=== PATIENT | female | born 1980 | race Caucasian/White ===

== ENCOUNTER → 2020-02-20 | Outpatient (REF) | payer BC ==
[2020-02-20 11:13] LABS: HEMATOCRIT 37.7 % (36.0-47.0); HEMOGLOBIN 12.4 g/dl (12.0-15.5); MEAN CORPUSCULAR HEMOGLOBIN 27.4 pg (27.0-33.0); MEAN CORPUSCULAR HGB CONC 32.9 g/dl (32.0-36.5); MEAN CORPUSCULAR VOLUME 83.4 fl (80.0-96.0); PLATELET COUNT, AUTOMATED 260 10^3/uL (150-450); RED BLOOD COUNT 4.52 10^6/uL (4.00-5.40); WHITE BLOOD COUNT 7.7 10^3/uL (4.0-10.0)
[2020-02-20 12:01] LABS: GLUCOSE CHALLENGE TEST 1 HOUR 73 MG/DL (LESS THAN 140)
[2020-02-20 12:46] LABS: CHLAMYDIA DNA AMPLIFICATION NEGATIVE (NEGATIVE); GC DNA AMPLIFICATION NEGATIVE (NEGATIVE)
[2020-02-20 12:47] LABS: HEPATITIS C VIRUS ABY INDEX 0.2 INDEX (<0.8); HIV 1&2 SCREEN CENTAUR NEGATIVE (NEGATIVE)
== END ==
LOC: M PLALAB 08:55
PROVIDERS: ATTEND Advanced Practice Midwife
DX: O09.523 Supervision of elderly multigravida, third trimester (principal)

== ENCOUNTER → 2020-02-25 | Outpatient (CLI) | payer BC ==
[~2020-02-25] MED LIST: IBUP80TA PO; PRENTAB9 PO; VALA500T5 PO; [UNRECOGNIZED DRUG - CODE] PO
--- NOTE | 2020-02-25 16:05 | REP ---
Clinical: Anatomical evaluation. Comparison: None . Findings: Examination demonstrates a single live intrauterine in cephalic presentation. motion is identified by technologist. Placenta is noted posterior and grade I without evidence for placenta previa or abruption. Amniotic fluid volume is normal. Cervix measures 3.8 cm in length and appears closed. No evidence for nuchal cord. Gestational age by LMP 31 weeks 6 days with SHELIA 04/22/2020 . Gestational age by current measurements 32 weeks 4 days with SHELIA see 04/17/2020 . FHR equals 142 beats per minute. Estimated weight 2006 grams ( 57th percentile). Amniotic fluid index: 11.8 cm (8.6 - 24.2). Anatomical assessment demonstrates no gross abnormalities. History of renal pelviectasis is given. Current examination demonstrates the right renal pelvis to measures 4.8 mm diameter and the left renal pelvis to measure 5.8 mm diameter. Impression: Single live intrauterine in cephalic presentation demonstrating appropriate estimated weight and growth. No gross abnormalities are identified.
== END ==
LOC: M WHC 14:25
PROVIDERS: ATTEND Advanced Practice Midwife
DX: O09.523 Supervision of elderly multigravida, third trimester (principal)

== ENCOUNTER 2020-03-13 21:09 | Outpatient (CLI) | payer BC ==
[~2020-03-13] VITALS: Ht 175.3 cm; Wt 121.3 kg
[2020-03-13 22:09] VITALS: BP 115/52
[2020-03-13 23:28] VITALS: BP 115/54
[2020-03-14 00:21] VITALS: BP 131/59
[2020-03-14] MEDS ORDERED: PRENATAL VITAMINS CHEWABLE TABLET PO SCH (09:00)
--- NOTE | 2020-03-14 09:22 | IPN ---
DATE: 03/14/2020 39-year-old, 3, para 2 female at 34-4/7 weeks' gestation presents with decreased movement for 1 day. She woke up in the morning and noticed the baby was not moving. The baby had some movements but it was very minimal, not characteristic at all for this baby. She denies pain or bleeding. OBJECTIVE: Afebrile, vital signs stable. No apparent distress. Head and neck exam: Normal. Lungs: Clear. Heart: Regular. Abdomen: Nontender, gravid. heart tones: Category 1. Contractions: None. Ultrasound at bedside, biophysical profile 04/17, amniotic fluid level 10.0, vertex. ASSESSMENT: 39-year-old, 3, para 2 female at 34-4/7 weeks' gestation presents with decreased movement. All testing is reassuring. PLAN: Patient is discharged home. She will continue to monitor movements. Followup in the office as scheduled.
== END 2020-03-14 00:30 | disposition home or self-care (01) ==
LOC: M LDO 21:09
PROVIDERS: ATTEND Specialist
DX: O36.8130 Decreased fetal movements, third trimester, not applicable or unspecified (principal); O09.523 Supervision of elderly multigravida, third trimester; Z3A.34 34 weeks gestation of pregnancy
CPT/HCPCS: 59025; 76815; G0378; G0463

== ENCOUNTER → 2020-03-23 | Outpatient (REF) | payer BC | LOC: M SFHCWAGY 17:06 | PROVIDERS: ATTEND Advanced Practice Midwife | DX: O09.529 Supervision of elderly multigravida, unspecified trimester (principal); Z3A.00 Weeks of gestation of pregnancy not specified ==

== ENCOUNTER 2020-03-27 10:32 | Outpatient (CLI) | payer BC ==
[~2020-03-27] VITALS: Ht 175.3 cm; Wt 120.9 kg
[2020-03-27 10:49] VITALS: BP 108/59
[2020-03-27] MEDS ORDERED: PRENTAB9 PO (11:00)
[2020-03-27] MEDS ORDERED: [UNRECOGNIZED DRUG - CODE] PO (11:00)
[2020-03-27] MEDS ORDERED: VALA500T5 PO (12:57)
== END 2020-03-27 13:00 | disposition home or self-care (01) ==
LOC: M LDO 10:32
PROVIDERS: ATTEND Obstetrics & Gynecology
DX: O47.03 False labor before 37 completed weeks of gestation, third trimester (principal); Z3A.36 36 weeks gestation of pregnancy
CPT/HCPCS: 59025; 76815; G0378; G0463

== ENCOUNTER 2020-03-27 23:19 | Inpatient (IN) | payer BC ==
[~2020-03-27] VITALS: Ht 175.3 cm; Wt 121.8 kg
[~2020-03-27 23:19] MED LIST changes: -IBUP80TA PO
[2020-03-27 23:36] VITALS: BP 133/75
[2020-03-28] VITALS (7 sets, daily range): BP systolic 113–144; BP diastolic 60–77
[2020-03-28] MEDS ORDERED: LR 1,000 ML IV SCH ×2 (00:08→02:46)
[2020-03-28] MEDS ORDERED: LACTATED RINGER'S 1000 ML IV STA (00:08)
[2020-03-28] MEDS ORDERED: BUTORPHANOL 2 MG/ML INJ (J0595) IV ONE (00:15)
[2020-03-28] MEDS ORDERED: PROMETHAZINE INJ 25 MG/ML VIAL (J2550) IV ONE (00:15)
[2020-03-28] MEDS ORDERED: ONDANSETRON 4MG/2ML VIAL IV SCH (00:30)
[2020-03-28] MEDS ORDERED: OXYTOCIN 30 UNITS IN 0.9% NaCl 500ML IV BAG (J2590) As Ordered ONE (01:56)
[2020-03-28] MEDS ORDERED: OXYTOCIN DRIP 30 UNITS in IV 1 EA IV SCH (02:46)
[2020-03-28] MEDS ORDERED: ACETAMINOPHEN 500 MG TAB PO PRN (03:00)
[2020-03-28] MEDS ORDERED: ONDANSETRON 4MG/2ML VIAL IV PRN (03:00)
[2020-03-28] MEDS ORDERED: DIBUCAINE 1% OINTMENT 30GM TOP PRN (03:00)
[2020-03-28] MEDS ORDERED: MEASLES,MUMPS,RUBELLA VACCINE INJ (MMR-II) (90707) SC SCH (03:00)
[2020-03-28] MEDS ORDERED: IBUPROFEN 600MG TAB PO PRN (03:00)
[2020-03-28] MEDS ORDERED: DOCUSATE SODIUM 100 MG CAP PO PRN (03:00)
[2020-03-28] MEDS ORDERED: RHOGAM 300 MCG (1500 IU) INJ (J2790) IM SCH (03:00)
[2020-03-28] MEDS ORDERED: PROMETHAZINE 25 MG TAB PO PRN (03:00)
[2020-03-28] MEDS ORDERED: ACETAMINOPHEN TAB 650MG DOSE (2X325MG) PO PRN (03:00)
[2020-03-28 08:09] LABS: HEMATOCRIT 34.4 % (36.0-47.0); HEMOGLOBIN 11.4 g/dl (12.0-15.5); MEAN CORPUSCULAR HEMOGLOBIN 27.5 pg (27.0-33.0); MEAN CORPUSCULAR HGB CONC 33.1 g/dl (32.0-36.5); MEAN CORPUSCULAR VOLUME 82.9 fl (80.0-96.0); PLATELET COUNT, AUTOMATED 289 10^3/uL (150-450); RED BLOOD COUNT 4.15 10^6/uL (4.00-5.40); WHITE BLOOD COUNT 13.2 10^3/uL (4.0-10.0)
[2020-03-28] MEDS: PRENATAL VITAMINS CHEWABLE TABLET PO SCH (08:54)
[2020-03-28] MEDS: IBUPROFEN 800 MG TAB PO PRN ×2 (14:44→23:56)
[2020-03-29 06:00] VITALS: BP 109/56
[2020-03-29] MEDS: PRENATAL VITAMINS CHEWABLE TABLET PO SCH (08:03)
[2020-03-29 17:38] VITALS: BP 108/55
[2020-03-29] MEDS: IBUPROFEN 800 MG TAB PO PRN (17:47)
[2020-03-30] MEDS: IBUPROFEN 800 MG TAB PO PRN (05:17)
[2020-03-30 06:00] VITALS: BP 125/59
[2020-03-30] MEDS: PRENATAL VITAMINS CHEWABLE TABLET PO SCH (09:13)
[2020-03-30] MEDS ORDERED: IBUP80TA PO (09:31)
== END 2020-03-30 10:10 | disposition home or self-care (01) | DRG 560 ==
LOC: M LDO 23:19 → M LDI 03-28 01:53 → M OBS 03-28 09:07
PROVIDERS: ADMIT Obstetrics & Gynecology; ATTEND Obstetrics & Gynecology
PROC: 10E0XZZ Delivery of Products of Conception, External Approach (ICD-10-PCS; principal; 2020-03-28)
DX: O62.3 Precipitate labor (principal); O09.523 Supervision of elderly multigravida, third trimester; Z3A.36 36 weeks gestation of pregnancy; O69.81X0 Labor and delivery complicated by cord around neck, without compression, not applicable or unspecified; O60.14X0 Preterm labor third trimester with preterm delivery third trimester, not applicable or unspecified; Z37.0 Single live birth

== ENCOUNTER → 2020-09-02 | Outpatient (REF) | payer BC ==
[~2020-09-02] MED LIST changes: +IBUP80TA PO
[2020-09-02 13:55] LABS: HEMATOCRIT 39.5 % (36.0-47.0); HEMOGLOBIN 12.2 g/dl (12.0-15.5); MEAN CORPUSCULAR HEMOGLOBIN 25.2 pg (27.0-33.0); MEAN CORPUSCULAR HGB CONC 30.9 g/dl (32.0-36.5); MEAN CORPUSCULAR VOLUME 81.6 fl (80.0-96.0); PLATELET COUNT, AUTOMATED 332 10^3/uL (150-450); RED BLOOD COUNT 4.84 10^6/uL (4.00-5.40); WHITE BLOOD COUNT 5.6 10^3/uL (4.0-10.0)
[2020-09-02 14:31] LABS: ALBUMIN 3.6 GM/DL (3.2-5.2); ALT/SGPT 21 U/L (12-78); BILIRUBIN,TOTAL 0.6 MG/DL (0.2-1.0); BLOOD UREA NITROGEN 10 MG/DL (7-18); CALCIUM LEVEL 8.5 MG/DL (8.5-10.1); CARBON DIOXIDE LEVEL 25 MEQ/L (21-32); CHLORIDE LEVEL 109 MEQ/L (98-107); CHOLESTEROL LEVEL 153 MG/DL (<200); CREATININE FOR GFR 0.61 MG/DL (0.55-1.30); FERRITIN 10 NG/ML (8-252); FREE THYROXINE INDEX 3.1 % (1.3-4.8); GLOMERULAR FILTRATION RATE > 60.0 (>60); GLUCOSE, FASTING 81 MG/DL (70-100); HDL CHOLESTEROL 68 MG/DL (>40); IRON (FE) 60 UG/DL (50-170); LDL CHOLESTEROL 73 MG/DL (<100); NON-HDL-C 85 MG/DL; PERCENT SATURATION 14.6 % (13.2-45.0); POTASSIUM SERUM 4.1 MEQ/L (3.5-5.1); SODIUM LEVEL 140 MEQ/L (136-145); T UPTAKE 32 % (30-39); THYROXINE (T4) 9.6 UG/DL (4.5-12.0); TOTAL IRON BINDING CAPACITY 410 UG/DL (250-450); TRIGLYCERIDES LEVEL 60 MG/DL (<150)
[2020-09-02 15:24] LABS: TOTAL 25(OH) VITAMIN D 23.5 NG/ML (30.0-100.0)
[2020-09-02 15:25] LABS: FOLLICLE STIMULATING HORMONE 5.8 mIU/mL; VITAMIN B12 LEVEL 1477 PG/ML (247-911)
== END ==
LOC: M SFHCPLAZ 09:34
PROVIDERS: ATTEND Nurse Practitioner Adult Health
DX: Z00.00 Encounter for general adult medical examination without abnormal findings (principal); Z13.220 Encounter for screening for lipoid disorders; Z13.1 Encounter for screening for diabetes mellitus; Z13.21 Encounter for screening for nutritional disorder; R53.83 Other fatigue; R63.5 Abnormal weight gain; N92.6 Irregular menstruation, unspecified

== ENCOUNTER → 2020-10-15 | Outpatient (REF) | payer BC ==
[2020-10-15 11:05] LABS: FREE T4 1.12 NG/DL (0.76-1.46); THYROID STIMULATING HORMONE 1.36 uIU/ML (0.358-3.740)
[2020-10-15 11:08] LABS: PROLACTIN 8.2 NG/ML
== END ==
LOC: M PLALAB 08:35
PROVIDERS: ATTEND Obstetrics & Gynecology
DX: N64.3 Galactorrhea not associated with childbirth (principal)

== ENCOUNTER → 2021-03-01 | Outpatient (REF) | payer BC ==
[2021-03-01 13:34] LABS: HEMATOCRIT 42.3 % (36.0-47.0); HEMOGLOBIN 13.1 g/dl (12.0-15.5); MEAN CORPUSCULAR HEMOGLOBIN 25.2 pg (27.0-33.0); MEAN CORPUSCULAR VOLUME 81.3 fl (80.0-96.0); PLATELET COUNT, AUTOMATED 371 10^3/uL (150-450); WHITE BLOOD COUNT 5.4 10^3/uL (4.0-10.0)
[2021-03-01 13:58] LABS: HEMOGLOBIN A1c 5.1 %
[2021-03-01 14:08] LABS: ERYTHROCYTE SEDIMENTATION RATE 12 mm/hr (0-20)
[2021-03-01 14:33] LABS: ALBUMIN 3.8 GM/DL (3.2-5.2); ALT/SGPT 20 U/L (12-78); BILIRUBIN,TOTAL 0.4 MG/DL (0.2-1.0); BLOOD UREA NITROGEN 8 MG/DL (7-18); CALCIUM LEVEL 8.6 MG/DL (8.5-10.1); CARBON DIOXIDE LEVEL 29 MEQ/L (21-32); CHLORIDE LEVEL 104 MEQ/L (98-107); CREATININE FOR GFR 0.57 MG/DL (0.55-1.30); FERRITIN 6 NG/ML (8-252); FREE T4 1.11 NG/DL (0.76-1.46); GLOMERULAR FILTRATION RATE > 60.0 (>60); GLUCOSE, FASTING 69 MG/DL (70-100); IRON (FE) 39 UG/DL (50-170); PERCENT SATURATION 9.1 % (13.2-45.0); POTASSIUM SERUM 4.3 MEQ/L (3.5-5.1); PROLACTIN 9.2 NG/ML; SODIUM LEVEL 137 MEQ/L (136-145); THYROID STIMULATING HORMONE 0.997 uIU/ML (0.358-3.740); TOTAL 25(OH) VITAMIN D 47.3 NG/ML (30.0-100.0); TOTAL IRON BINDING CAPACITY 427 UG/DL (250-450); TOTAL PROTEIN 7.3 GM/DL (6.4-8.2)
[2021-03-02 12:07] LABS: DRVV SCREEN 40.8 SEC
[2021-03-02 12:10] LABS: PTT LUPUS TYPE ANTICOAG SCREEN 1.1 (0-1.2)
[2021-03-02 23:07] LABS: ANA (HEP2) Positive (.); ANTI SCLERODERMA ANTIBODIES <0.2 AI (0.0-0.9); CYCLIC CITRULLINATED PEPTIDE 4 units (0-19); IgG P18 AB Absent (.); IgG P23 AB Absent (.); IgG P28 AB Absent (.); IgG P30 AB Absent (.); IgG P39 AB Absent (.); IgG P41 AB Absent (.); IgG P45 AB Absent (.); IgG P66 AB Absent (.); IgG P93 AB Absent (.); IgM P23 AB Absent (.); IgM P39 AB Absent (.); IgM P41 AB Absent (.); LYME IgG WB INTERPRETATION Negative (.); LYME IgM WB INTERPRETATION Negative (.)
== END ==
LOC: M SFHCPLAZ 11:10
PROVIDERS: ATTEND Nurse Practitioner Adult Health
DX: M25.50 Pain in unspecified joint (principal); E74.39 Other disorders of intestinal carbohydrate absorption; R53.83 Other fatigue; R00.2 Palpitations; N64.3 Galactorrhea not associated with childbirth

== ENCOUNTER 2021-03-21 09:03 | Outpatient (CLI) | payer BC ==
[~2021-03-21] VITALS: Ht 172.7 cm; Wt 120.0 kg
[2021-03-21] VITALS (7 sets, daily range): BP systolic 88–132; BP diastolic 47–72
[~2021-03-21 09:03] MED LIST changes: +IRON SUCROSE 25 MG in NS 25 ML IV ONE; +IRON SUCROSE 475 MG in NS 250 ML IV ONE
[2021-03-21] MEDS ORDERED: diphenhydrAMINE 50MG CAP PO ONE (09:30)
[2021-03-21] MEDS ORDERED: ACETAMINOPHEN TAB 650MG DOSE (2X325MG) PO ONE (09:30)
== END 2021-03-21 14:25 | disposition home or self-care (01) ==
LOC: M INFU 09:03
PROVIDERS: ATTEND Nurse Practitioner Adult Health
DX: D50.9 Iron deficiency anemia, unspecified (principal); Z88.6 Allergy status to analgesic agent; Z91.040 Latex allergy status
CPT/HCPCS: 96365; 96366; J1756

== ENCOUNTER → 2021-06-20 | Outpatient (CLI) | payer BC ==
[~2021-06-20] MED LIST changes: -IRON SUCROSE 25 MG in NS 25 ML IV ONE; -IRON SUCROSE 475 MG in NS 250 ML IV ONE
[2021-06-20 16:14] LABS: HEMATOCRIT 41.9 % (36.0-47.0); HEMOGLOBIN 13.4 g/dl (12.0-15.5); MEAN CORPUSCULAR HEMOGLOBIN 26.9 pg (27.0-33.0); PLATELET COUNT, AUTOMATED 295 10^3/uL (150-450); RED BLOOD COUNT 4.99 10^6/uL (4.00-5.40); WHITE BLOOD COUNT 6.5 10^3/uL (4.0-10.0)
[2021-06-20 16:44] LABS: ALBUMIN 3.4 GM/DL (3.2-5.2); ALT/SGPT 18 U/L (12-78); BILIRUBIN,TOTAL 0.4 MG/DL (0.2-1.0); BLOOD UREA NITROGEN 16 MG/DL (7-18); CALCIUM LEVEL 8.4 MG/DL (8.5-10.1); CARBON DIOXIDE LEVEL 24 MEQ/L (21-32); CHLORIDE LEVEL 109 MEQ/L (98-107); FERRITIN 16 NG/ML (8-252); GLOMERULAR FILTRATION RATE > 60.0 (>60); GLUCOSE, FASTING 85 MG/DL (70-100); IRON (FE) 68 UG/DL (50-170); PERCENT SATURATION 21.3 % (13.2-45.0); POTASSIUM SERUM 4.1 MEQ/L (3.5-5.1); SODIUM LEVEL 138 MEQ/L (136-145); TOTAL IRON BINDING CAPACITY 319 UG/DL (250-450); TOTAL PROTEIN 6.7 GM/DL (6.4-8.2)
== END ==
LOC: M WUC 13:25
PROVIDERS: ATTEND Nurse Practitioner Adult Health
DX: D50.9 Iron deficiency anemia, unspecified (principal); E66.9 Obesity, unspecified

== ENCOUNTER → 2021-07-08 | Outpatient (CLI) | payer BC | LOC: M WUC 11:19 | PROVIDERS: ATTEND Nurse Practitioner Adult Health | DX: Z20.822 Contact with and (suspected) exposure to COVID-19 (principal); Z86.16 Personal history of COVID-19 ==

== ENCOUNTER → 2021-12-07 | Outpatient (CLI) | payer BC ==
[2021-12-07 14:11] LABS: HEMATOCRIT 39.6 % (36.0-47.0); MEAN CORPUSCULAR HEMOGLOBIN 26.7 pg (27.0-33.0); MEAN CORPUSCULAR HGB CONC 32.8 g/dl (32.0-36.5); MEAN CORPUSCULAR VOLUME 81.5 fl (80.0-96.0); PLATELET COUNT, AUTOMATED 377 10^3/uL (150-450); RED BLOOD COUNT 4.86 10^6/uL (4.00-5.40); WHITE BLOOD COUNT 5.6 10^3/uL (4.0-10.0)
[2021-12-07 14:40] LABS: ERYTHROCYTE SEDIMENTATION RATE 9 mm/hr (0-20)
[2021-12-07 15:08] LABS: ALBUMIN 3.8 GM/DL (3.2-5.2); ALT/SGPT 16 U/L (12-78); BILIRUBIN,TOTAL 0.5 MG/DL (0.2-1.0); BLOOD UREA NITROGEN 12 MG/DL (7-18); CALCIUM LEVEL 8.3 MG/DL (8.5-10.1); CARBON DIOXIDE LEVEL 27 MEQ/L (21-32); CHLORIDE LEVEL 106 MEQ/L (98-107); CREATININE FOR GFR 0.59 MG/DL (0.55-1.30); FERRITIN 5 NG/ML (8-252); GLOMERULAR FILTRATION RATE > 60.0 (>60); GLUCOSE, FASTING 85 MG/DL (70-100); IRON (FE) 30 UG/DL (50-170); PERCENT SATURATION 6.7 % (13.2-45.0); POTASSIUM SERUM 4.4 MEQ/L (3.5-5.1); RHEUMATOID FACTOR QUANT < 10.0 IU/ML (<15.0); SODIUM LEVEL 137 MEQ/L (136-145); TOTAL 25(OH) VITAMIN D 47.4 NG/ML (30.0-100.0); TOTAL IRON BINDING CAPACITY 445 UG/DL (250-450)
[2021-12-08 09:35] LABS: DRVV SCREEN 38.8 SEC
== END ==
LOC: M WUC 09:30
PROVIDERS: ATTEND Nurse Practitioner Adult Health
DX: M25.50 Pain in unspecified joint (principal); D50.9 Iron deficiency anemia, unspecified; E66.9 Obesity, unspecified; R53.83 Other fatigue

== ENCOUNTER 2022-01-11 08:20 | Emergency (ER) | payer BC ==
[~2022-01-11] VITALS: Ht 175.3 cm; Wt 120.2 kg
[~2022-01-11 08:20] MED LIST changes: -Holter Monitor
[2022-01-11 09:03] LABS: BASO % 0.7 % (0.0-1.0); EOS # 0.1 10^3/uL (0.0-0.5); EOS % 1.9 % (0.0-3.0); HEMATOCRIT 43.3 % (36.0-47.0); LYMPH # 1.3 10^3/uL (1.5-5.0); LYMPH % 22.1 % (24.0-44.0); MEAN CORPUSCULAR HEMOGLOBIN 26.6 pg (27.0-33.0); MEAN CORPUSCULAR HGB CONC 32.3 g/dl (32.0-36.5); MEAN CORPUSCULAR VOLUME 82.3 fl (80.0-96.0); MONO # 0.5 10^3/uL (0.0-0.8); MONO % 8.6 % (2.0-8.0); NEUTROPHILS % 66.4 % (36.0-66.0); PLATELET COUNT, AUTOMATED 355 10^3/uL (150-450); RED BLOOD COUNT 5.26 10^6/uL (4.00-5.40); WHITE BLOOD COUNT 5.9 10^3/uL (4.0-10.0)
[2022-01-11 09:22] LABS: INR 0.95; PROTHROMBIN TIME 13.1 SECONDS (12.7-14.5)
[2022-01-11 09:23] LABS: PARTIAL THROMBOPLASTIN TIME 38.4 SECONDS (25.9-37.0)
[2022-01-11 09:24] LABS: CK-MB VALUE MASS < 1.0 NG/ML (<3.6); CPK CREATINE PHOSPHOKINASE 65 U/L (26-192); MB/CK RELATIVE INDEX 1.54 (< OR =4)
[2022-01-11 09:28] LABS: HCG, SERUM QUALITATIVE NEGATIVE (NEGATIVE)
[2022-01-11 09:33] LABS: ALBUMIN 3.9 GM/DL (3.2-5.2); ALT/SGPT 16 U/L (12-78); BILIRUBIN,DIRECT 0.2 MG/DL (0.0-0.2); BILIRUBIN,TOTAL 0.6 MG/DL (0.2-1.0); BLOOD UREA NITROGEN 13 MG/DL (7-18); CALCIUM LEVEL 9.6 MG/DL (8.5-10.1); CARBON DIOXIDE LEVEL 28 MEQ/L (21-32); CHLORIDE LEVEL 106 MEQ/L (98-107); CREATININE FOR GFR 0.66 MG/DL (0.55-1.30); GLOMERULAR FILTRATION RATE > 60.0 (>58); GLUCOSE, FASTING 71 MG/DL (70-100); MAGNESIUM LEVEL 1.9 MG/DL (1.8-2.4); NT-PRO BNP 46 PG/ML (<125); SODIUM LEVEL 140 MEQ/L (136-145); TOTAL PROTEIN 7.6 GM/DL (6.4-8.2)
[2022-01-11 09:56] LABS: D-DIMER QUANT 339.73 ng/ml (<500)
[2022-01-11 10:53] LABS: CK-MB VALUE MASS < 1.0 NG/ML (<3.6); CPK CREATINE PHOSPHOKINASE 62 U/L (26-192); MB/CK RELATIVE INDEX 1.61 (< OR =4)
[2022-01-11 11:15] VITALS: BP 113/61
[2022-01-11] MEDS ORDERED: Holter Monitor (11:24)
== END 2022-01-11 11:40 | disposition home or self-care (01) ==
LOC: M ED 08:20
DX: R00.2 Palpitations (principal); Z88.6 Allergy status to analgesic agent; Z91.040 Latex allergy status

== ENCOUNTER → 2022-01-11 | Outpatient (CLI) | payer BC ==
[~2022-01-11] MED LIST changes: +Holter Monitor; +L-LY500T23 PO; +METH1CAP14 PO; +THEA200C PO; +VITA100T59 PO; +ZINC1TAB2 PO; +ZINC220CA PO; +[UNRECOGNIZED DRUG - CODE] XX
== END ==
LOC: M EKG 11:57
PROVIDERS: ATTEND Internal Medicine
DX: R00.2 Palpitations (principal)

== ENCOUNTER → 2022-03-02 | Outpatient (REF) | payer BC ==
[~2022-03-02] MED LIST changes: +Holter Monitor
[2022-03-02 12:19] LABS: BASO % 0.4 % (0.0-1.0); EOS # 0.1 10^3/uL (0.0-0.5); EOS % 2.7 % (0.0-3.0); HEMATOCRIT 44.5 % (36.0-47.0); HEMOGLOBIN 14.2 g/dl (12.0-15.5); LYMPH # 1.6 10^3/uL (1.5-5.0); LYMPH % 30.3 % (24.0-44.0); MEAN CORPUSCULAR HEMOGLOBIN 26.6 pg (27.0-33.0); MEAN CORPUSCULAR HGB CONC 31.9 g/dl (32.0-36.5); MEAN CORPUSCULAR VOLUME 83.5 fl (80.0-96.0); MONO # 0.5 10^3/uL (0.0-0.8); MONO % 9.8 % (2.0-8.0); NEUTROPHILS % 56.6 % (36.0-66.0); PLATELET COUNT, AUTOMATED 290 10^3/uL (150-450); RED BLOOD COUNT 5.33 10^6/uL (4.00-5.40); WHITE BLOOD COUNT 5.2 10^3/uL (4.0-10.0)
[2022-03-02 12:33] LABS: APPEARANCE, URINE HAZY (CLEAR); BACTERIA, URINE AUTO NEGATIVE (NEGATIVE); BILIRUBIN, URINE AUTO NEGATIVE (NEGATIVE); BLOOD, URINE BLOOD NEGATIVE (NEGATIVE); COLOR, URINE YELLOW (YELLOW); GLUCOSE, URINE (UA) AUTO NEGATIVE (NEGATIVE); KETONE, URINE AUTO NEGATIVE (NEGATIVE); LEUKOCYTE ESTERASE, URINE AUTO NEGATIVE (NEGATIVE); MUCUS, URINE SMALL (NEGATIVE); NITRITE, URINE AUTO NEGATIVE (NEGATIVE); PROTEIN, URINE AUTO NEGATIVE (NEGATIVE); RBC, URINE AUTO 0 /HPF (0-3); SQUAMOUS EPITHELIAL CELL UR AU 2 /HPF (0-6); UROBILINOGEN, URINE AUTO 0.2 mg/dL (0.0-2.0); WBC, URINE AUTO 0 /HPF (0-3)
[2022-03-02 12:52] LABS: ERYTHROCYTE SEDIMENTATION RATE 10 mm/hr (0-20)
[2022-03-02 13:59] LABS: TOTAL PROTEIN,RANDOM URINE 20.6 MG/DL (0.0-12.0)
[2022-03-02 14:02] LABS: ALBUMIN 3.9 GM/DL (3.2-5.2); ALT/SGPT 20 U/L (12-78); BILIRUBIN,TOTAL 0.5 MG/DL (0.2-1.0); BLOOD UREA NITROGEN 11 MG/DL (7-18); CALCIUM LEVEL 8.6 MG/DL (8.5-10.1); CARBON DIOXIDE LEVEL 26 MEQ/L (21-32); CHLORIDE LEVEL 109 MEQ/L (98-107); COMPLEMENT C3 105 MG/DL (90-180); COMPLEMENT C4 33 MG/DL (10-40); CREATININE FOR GFR 0.58 MG/DL (0.55-1.30); GLOMERULAR FILTRATION RATE > 60.0 (>58); GLUCOSE, FASTING 88 MG/DL (70-100); POTASSIUM SERUM 4.5 MEQ/L (3.5-5.1); SODIUM LEVEL 138 MEQ/L (136-145); TOTAL PROTEIN 7.2 GM/DL (6.4-8.2)
== END ==
LOC: M SFHCRHEU 09:12
PROVIDERS: ATTEND Internal Medicine Rheumatology
DX: R76.8 Other specified abnormal immunological findings in serum (principal); M35.3 Polymyalgia rheumatica; R21 Rash and other nonspecific skin eruption; R53.83 Other fatigue

== ENCOUNTER → 2022-06-01 | Outpatient (CLI) | payer BC ==
[~2022-06-01] MED LIST changes: +OZEM2INJ
[2022-06-01 10:35] LABS: BASO % 0.7 % (0.0-1.0); EOS # 0.1 10^3/uL (0.0-0.5); EOS % 1.7 % (0.0-3.0); HEMATOCRIT 42.7 % (36.0-47.0); HEMOGLOBIN 14.2 g/dl (12.0-15.5); LYMPH # 1.6 10^3/uL (1.5-5.0); LYMPH % 30.1 % (24.0-44.0); MEAN CORPUSCULAR HEMOGLOBIN 28.9 pg (27.0-33.0); MEAN CORPUSCULAR HGB CONC 33.3 g/dl (32.0-36.5); MONO # 0.5 10^3/uL (0.0-0.8); MONO % 9.2 % (2.0-8.0); NEUTROPHILS # 3.1 10^3/uL (1.5-8.5); NEUTROPHILS % 58.1 % (36.0-66.0); PLATELET COUNT, AUTOMATED 365 10^3/uL (150-450); RED BLOOD COUNT 4.91 10^6/uL (4.00-5.40); WHITE BLOOD COUNT 5.3 10^3/uL (4.0-10.0)
[2022-06-01 11:16] LABS: ALT/SGPT 16 U/L (12-78); BILIRUBIN,TOTAL 0.5 MG/DL (0.2-1.0); BLOOD UREA NITROGEN 8 MG/DL (7-18); CALCIUM LEVEL 8.7 MG/DL (8.5-10.1); CARBON DIOXIDE LEVEL 24 MEQ/L (21-32); CHLORIDE LEVEL 108 MEQ/L (98-107); CREATININE FOR GFR 0.63 MG/DL (0.55-1.30); FERRITIN 206 NG/ML (8-252); GLOMERULAR FILTRATION RATE > 60.0 (>58); GLUCOSE, FASTING 84 MG/DL (70-100); IRON (FE) 79 UG/DL (50-170); PERCENT SATURATION 27.7 % (13.2-45.0); POTASSIUM SERUM 4.5 MEQ/L (3.5-5.1); SODIUM LEVEL 137 MEQ/L (136-145); TOTAL IRON BINDING CAPACITY 285 UG/DL (250-450); TOTAL PROTEIN 7.2 GM/DL (6.4-8.2)
== END ==
LOC: M LAB 09:19
PROVIDERS: ATTEND Internal Medicine Medical Oncology
DX: E61.1 Iron deficiency (principal)

== ENCOUNTER → 2022-08-17 | Outpatient (CLI) | payer BC ==
[2022-08-17 18:17] LABS: ALBUMIN 3.8 G/DL (3.2-5.2); ALKALINE PHOSPHATASE 60 U/L (46-116); ALT/SGPT 10 U/L (7.0-40); AST/SGOT 14 U/L (<34); BILIRUBIN,TOTAL 0.7 MG/DL (0.3-1.2); BLOOD UREA NITROGEN 12 MG/DL (9-23); CALCIUM LEVEL 8.7 MG/DL (8.5-10.1); CARBON DIOXIDE LEVEL 27 MMOL/L (20-31); CHLORIDE LEVEL 104 MMOL/L (98-107); CREATININE FOR GFR 0.54 MG/DL (0.55-1.30); GLOMERULAR FILTRATION RATE > 60.0 (>58); GLUCOSE, FASTING 82 MG/DL (60-100); POTASSIUM SERUM 4.3 MMOL/L (3.5-5.1); SODIUM LEVEL 138 MMOL/L (136-145); TOTAL PROTEIN 6.9 G/DL (5.7-8.2)
[2022-08-17 18:19] LABS: TOTAL 25(OH) VITAMIN D 31.6 NG/ML (20.0-100.0)
[2022-08-17 21:35] LABS: HEMOGLOBIN A1c 4.4 % (4.0-6.0)
== END ==
LOC: M WUC 11:27
PROVIDERS: ATTEND Nurse Practitioner Adult Health
DX: E74.39 Other disorders of intestinal carbohydrate absorption (principal); E55.9 Vitamin D deficiency, unspecified

== ENCOUNTER → 2022-08-17 | Outpatient (CLI) | payer BC ==
[2022-08-17 17:42] LABS: BASO % 0.6 % (0.0-1.0); EOS # 0.1 10^3/uL (0.0-0.5); EOS % 1.7 % (0.0-3.0); HEMOGLOBIN 13.8 g/dl (12.0-15.5); LYMPH # 2.3 10^3/uL (1.5-5.0); LYMPH % 31.3 % (24.0-44.0); MEAN CORPUSCULAR HEMOGLOBIN 28.2 pg (27.0-33.0); MEAN CORPUSCULAR HGB CONC 31.4 g/dl (32.0-36.5); MONO # 0.6 10^3/uL (0.0-0.8); MONO % 8.9 % (2.0-8.0); NEUTROPHILS # 4.1 10^3/uL (1.5-8.5); NEUTROPHILS % 57.2 % (36.0-66.0); PLATELET COUNT, AUTOMATED 357 10^3/uL (150-450); RED BLOOD COUNT 4.89 10^6/uL (4.00-5.40); WHITE BLOOD COUNT 7.2 10^3/uL (4.0-10.0)
[2022-08-17 18:19] LABS: ALBUMIN 3.7 G/DL (3.2-5.2); ALKALINE PHOSPHATASE 62 U/L (46-116); ALT/SGPT 11 U/L (7.0-40); AST/SGOT 12 U/L (<34); BILIRUBIN,TOTAL 0.7 MG/DL (0.3-1.2); BLOOD UREA NITROGEN 12 MG/DL (9-23); CALCIUM LEVEL 8.6 MG/DL (8.5-10.1); CARBON DIOXIDE LEVEL 27 MMOL/L (20-31); CHLORIDE LEVEL 103 MMOL/L (98-107); CREATININE FOR GFR 0.57 MG/DL (0.55-1.30); GLOMERULAR FILTRATION RATE > 60.0 (>58); GLUCOSE, FASTING 85 MG/DL (60-100); IRON (FE) 88 UG/DL (50-170); PERCENT SATURATION 28.9 % (13.2-45.0); POTASSIUM SERUM 4.2 MMOL/L (3.5-5.1); SODIUM LEVEL 136 MMOL/L (136-145); TOTAL IRON BINDING CAPACITY 304 UG/DL (250-425)
[2022-08-17 18:22] LABS: FERRITIN 110.3 NG/ML (7.3-270.7)
== END ==
LOC: M WUC 11:32
PROVIDERS: ATTEND Specialist
DX: D50.9 Iron deficiency anemia, unspecified (principal)

== ENCOUNTER → 2022-10-24 | Outpatient (REF) | payer BC ==
[2022-10-24 16:27] LABS: IMMUNOGLOBULIN A 197.8 MG/DL (40-350)
[2022-10-24 16:28] LABS: PERCENT SATURATION 17.4 % (13.2-45.0)
[2022-10-24 16:30] LABS: FOLATE 10.9 NG/ML (>5.4)
== END ==
LOC: M LAB REF 16:05
PROVIDERS: ATTEND Internal Medicine
DX: D64.9 Anemia, unspecified (principal)

== ENCOUNTER → 2022-12-14 | Outpatient (REF) | payer BC ==
[2022-12-14 17:15] LABS: BASO # 0.1 10^3/uL (0.0-0.2); BASO % 0.7 % (0.0-1.0); EOS # 0.1 10^3/uL (0.0-0.5); EOS % 1.5 % (0.0-3.0); HEMATOCRIT 42.5 % (36.0-47.0); HEMOGLOBIN 13.6 g/dl (12.0-15.5); LYMPH # 2.1 10^3/uL (1.5-5.0); LYMPH % 29.3 % (24.0-44.0); MEAN CORPUSCULAR HEMOGLOBIN 27.7 pg (27.0-33.0); MEAN CORPUSCULAR VOLUME 86.6 fl (80.0-96.0); MONO # 0.7 10^3/uL (0.0-0.8); MONO % 9.5 % (2.0-8.0); NEUTROPHILS # 4.2 10^3/uL (1.5-8.5); NEUTROPHILS % 58.9 % (36.0-66.0); PLATELET COUNT, AUTOMATED 376 10^3/uL (150-450); RED BLOOD COUNT 4.91 10^6/uL (4.00-5.40); WHITE BLOOD COUNT 7.2 10^3/uL (4.0-10.0)
[2022-12-14 17:17] LABS: IRON (FE) 72 UG/DL (50-170); PERCENT SATURATION 25.3 % (13.2-45.0); TOTAL IRON BINDING CAPACITY 285 UG/DL (250-425)
[2022-12-14 17:18] LABS: ALBUMIN 3.9 G/DL (3.2-5.2); ALKALINE PHOSPHATASE 51 U/L (46-116); ALT/SGPT 14 U/L (7.0-40); AST/SGOT 12 U/L (<34); BILIRUBIN,TOTAL 0.5 MG/DL (0.3-1.2); BLOOD UREA NITROGEN 15 MG/DL (9-23); CALCIUM LEVEL 8.7 MG/DL (8.5-10.1); CARBON DIOXIDE LEVEL 28 MMOL/L (20-31); CHLORIDE LEVEL 104 MMOL/L (98-107); CREATININE FOR GFR 0.58 MG/DL (0.55-1.30); GLOMERULAR FILTRATION RATE > 60.0 (>58); GLUCOSE, FASTING 78 MG/DL (60-100); POTASSIUM SERUM 4.1 MMOL/L (3.5-5.1); SODIUM LEVEL 140 MMOL/L (136-145); TOTAL PROTEIN 6.6 G/DL (5.7-8.2)
[2022-12-14 17:19] LABS: FERRITIN 78.8 NG/ML (7.3-270.7)
== END ==
LOC: M LABWUC 16:13
PROVIDERS: ATTEND Internal Medicine Hematology & Oncology
DX: D50.9 Iron deficiency anemia, unspecified (principal)

== ENCOUNTER → 2023-01-26 | Outpatient (REF) | payer BC | LOC: M LAB REF 16:10 | PROVIDERS: ATTEND Internal Medicine | DX: Z01.82 Encounter for allergy testing (principal) ==

== ENCOUNTER → 2023-08-10 | Outpatient (REF) | payer BC ==
[2023-08-10 18:13] LABS: FERRITIN 37.7 NG/ML (7.3-270.7)
== END ==
LOC: M LAB REF 16:27
PROVIDERS: ATTEND Internal Medicine
DX: D50.9 Iron deficiency anemia, unspecified (principal)

== ENCOUNTER 2023-11-30 13:32 | Outpatient (CLI) | payer BC ==
[~2023-11-30] VITALS: Ht 172.7 cm; Wt 90.9 kg
[~2023-11-30 13:32] MED LIST changes: +ALBUTEROL SULFATE 2.5MG/0.5ML INH NEB SOLN INH PRN; +EPINEPHrine INJ 1 MG/ML 1ML AMP IM PRN; +diphenhydrAMINE 50MG/ML VIAL IV PRN; +methylPREDNISolone 125MG 2ML VIAL IV PRN
[2023-11-30 14:00] VITALS: BP 118/65; O2SAT 100
[2023-11-30] MEDS ORDERED: NS 1,000 ML IV SCH (14:00)
[2023-11-30] MEDS: FERRIC CARBOXYMALTOSE INJ 750 MG in NS 250 ML (>50kg) IV ONE (14:18)
[2023-11-30 15:28] VITALS: BP 115/74; O2SAT 100
== END 2023-11-30 15:29 ==
LOC: M INFU 13:32
PROVIDERS: ATTEND Internal Medicine
DX: E61.1 Iron deficiency (principal); Z88.7 Allergy status to serum and vaccine; Z88.5 Allergy status to narcotic agent; Z91.040 Latex allergy status
CPT/HCPCS: 96365; J1439

== ENCOUNTER 2023-12-07 13:05 | Outpatient (CLI) | payer BC ==
[~2023-12-07] VITALS: Ht 172.7 cm; Wt 89.0 kg
[2023-12-07 13:05] VITALS: BP 112/55; O2SAT 98
[~2023-12-07 13:05] MED LIST changes: +NS 1,000 ML IV SCH
[2023-12-07] MEDS: FERRIC CARBOXYMALTOSE INJ 750 MG in NS 250 ML (>50kg) IV ONE (13:28)
[2023-12-07 15:00] VITALS: BP 120/74; O2SAT 99
== END 2023-12-07 15:00 | disposition home or self-care (01) ==
LOC: M INFU 13:05
PROVIDERS: ATTEND Internal Medicine
DX: E61.1 Iron deficiency (principal); Z88.7 Allergy status to serum and vaccine; Z88.5 Allergy status to narcotic agent
CPT/HCPCS: 96365; J1439

== ENCOUNTER → 2024-04-09 | Outpatient (REF) | payer BC ==
[~2024-04-09] MED LIST changes: -ALBUTEROL SULFATE 2.5MG/0.5ML INH NEB SOLN INH PRN; -EPINEPHrine INJ 1 MG/ML 1ML AMP IM PRN; -NS 1,000 ML IV SCH; -diphenhydrAMINE 50MG/ML VIAL IV PRN; -methylPREDNISolone 125MG 2ML VIAL IV PRN
[2024-04-09 14:42] LABS: PERCENT SATURATION 22.1 % (13.2-45.0)
[2024-04-09 14:45] LABS: FERRITIN 169.3 NG/ML (7.3-270.7)
== END ==
LOC: M LAB REF 12:38
PROVIDERS: ATTEND Internal Medicine
DX: E61.1 Iron deficiency (principal); N92.4 Excessive bleeding in the premenopausal period

== ENCOUNTER → 2024-09-09 | Outpatient (REF) | payer BC ==
[2024-09-09 13:34] LABS: PERCENT SATURATION 25.5 % (13.2-45.0)
[2024-09-09 13:37] LABS: FERRITIN 74.9 NG/ML (7.3-270.7)
== END ==
LOC: M LAB REF 12:23
PROVIDERS: ATTEND Internal Medicine
DX: E61.1 Iron deficiency (principal)

== ENCOUNTER → 2025-05-18 | Outpatient (REF) | payer BC ==
[2025-05-18 14:20] LABS: IRON (FE) 56.0 UG/DL (50-170)
[2025-05-18 14:21] LABS: PERCENT SATURATION 16.1 % (13.2-45.0)
== END ==
LOC: M LAB REF 12:09
PROVIDERS: ATTEND Internal Medicine
DX: E61.1 Iron deficiency (principal)

== ENCOUNTER 2025-05-27 14:16 | Outpatient (CLI) | payer BC ==
[~2025-05-27] VITALS: Ht 172.7 cm; Wt 95.4 kg
[~2025-05-27 14:16] MED LIST changes: +ALBUTEROL SULFATE 2.5 MG/0.5 ML INH CONCENTRATE NEB SOLN INH PRN; +EPINEPHrine INJ 1 MG/ML 1ML AMP IM PRN; +diphenhydrAMINE 50 MG/ML VIAL IV PRN
[2025-05-27 14:30] VITALS: BP 110/70; O2SAT 99
[2025-05-27] MEDS: FERRIC CARBOXYMALTOSE 750 MG (VIAL MATE) IN 100ML NS IV ONE (14:42)
[2025-05-27 15:15] VITALS: BP 108/73; O2SAT 99
== END 2025-05-27 15:15 ==
LOC: M INFU 14:16
PROVIDERS: ATTEND Internal Medicine
DX: E61.1 Iron deficiency (principal); Z88.5 Allergy status to narcotic agent; Z88.7 Allergy status to serum and vaccine; Z91.040 Latex allergy status
CPT/HCPCS: 96365; J1439

== ENCOUNTER 2025-06-03 14:37 | Outpatient (CLI) | payer BC ==
[~2025-06-03] VITALS: Ht 172.7 cm; Wt 95.4 kg
[2025-06-03 14:45] VITALS: BP 110/62; O2SAT 98
[2025-06-03] MEDS: FERRIC CARBOXYMALTOSE 750 MG (VIAL MATE) IN 100ML NS IV ONE (14:54)
[2025-06-03 15:20] VITALS: BP 105/65; O2SAT 98
== END 2025-06-03 15:20 ==
LOC: M INFU 14:37
PROVIDERS: ATTEND Internal Medicine
DX: E61.1 Iron deficiency (principal); Z88.5 Allergy status to narcotic agent; Z88.7 Allergy status to serum and vaccine; Z91.040 Latex allergy status
CPT/HCPCS: 96365; J1439

== ENCOUNTER → 2025-07-15 | Outpatient (REF) | payer BC ==
[~2025-07-15] MED LIST changes: -ALBUTEROL SULFATE 2.5 MG/0.5 ML INH CONCENTRATE NEB SOLN INH PRN; -EPINEPHrine INJ 1 MG/ML 1ML AMP IM PRN; -diphenhydrAMINE 50 MG/ML VIAL IV PRN
[2025-07-15 18:34] LABS: HIV 1&2 SCREEN NEGATIVE (NEGATIVE)
[2025-07-15 18:42] LABS: HEPATITIS C VIRUS ABY INDEX < 0.02 INDEX (<0.8)
== END ==
LOC: M LAB REF 17:10
PROVIDERS: ATTEND Nurse Practitioner Adult Health
DX: Z72.51 High risk heterosexual behavior (principal)

== ENCOUNTER 2025-08-31 14:36 | Emergency (ER) | payer BC ==
[2025-08-31] MEDS ORDERED: TIRZ5PEN SQ (14:55)
[2025-08-31 15:34] LABS: BASO # 0.0 10^3/uL (0.0-0.2); BASO % 0.7 % (0.0-1.0); EOS # 0.1 10^3/uL (0.0-0.5); EOS % 2.1 % (0.0-3.0); LYMPH # 1.5 10^3/uL (1.5-5.0); LYMPH % 26.3 % (24.0-44.0); MONO # 0.5 10^3/uL (0.0-0.8); MONO % 9.1 % (2.0-8.0); NEUTROPHILS # 3.6 10^3/uL (1.5-8.5); NEUTROPHILS % 61.6 % (36.0-66.0); PLATELET COUNT, AUTOMATED 335 10^3/uL (150-450)
[2025-08-31 16:12] LABS: CALCIUM LEVEL 7.9 MG/DL (8.5-10.1); CARBON DIOXIDE LEVEL 26 MMOL/L (20-31); CHLORIDE LEVEL 106 MMOL/L (98-107); CK-MB VALUE MASS < 1.0 NG/ML (<3.6); CPK CREATINE PHOSPHOKINASE 65 U/L (34-145); CREATININE FOR GFR 0.53 MG/DL (0.55-1.30); GLOMERULAR FILTRATION RATE > 90.0 (>58); MAGNESIUM LEVEL 2.0 MG/DL (1.8-2.4); POTASSIUM SERUM 5.0 MMOL/L (3.5-5.1); SODIUM LEVEL 140 MMOL/L (136-145)
[2025-08-31] MEDS ORDERED: HOLTER MONITOR XX (16:34)
[2025-08-31 16:56] VITALS: BP 133/61; TEMP 98; O2SAT 99
== END 2025-08-31 17:08 | disposition home or self-care (01) ==
LOC: M ED 15:50
DX: R00.2 Palpitations (principal); Z88.5 Allergy status to narcotic agent; Z88.7 Allergy status to serum and vaccine; Z91.040 Latex allergy status; Z79.1 Long term (current) use of non-steroidal anti-inflammatories (NSAID); Z79.899 Other long term (current) drug therapy